=== PATIENT | female | born 1965 | race Caucasian/White ===

== ENCOUNTER → 2017-07-04 | Outpatient (CLI) | payer BC ==
[~2017-07-04] MED LIST: AMOXICILLIN500 M1 PO; ASPIRIN EC81 MG PO; BIPAP INH; BRINTELLIX5 MG PO; CARAFATE1 GM PO; CLARITIN10 MG PO; CLOTRIMAZOLE-BE45 GM TOP; COLACE100 MG PO; DITROPAN5 MG PO; DOXYCYCLINE100 MG PO; DURAGESIC 25MC25 MCG TOP; EFFEXOR XR150 MG PO; FEOSOL PO; K-TAB 10MEQ10 MEQ PO; LASIX40 MG PO; LIDODERM 5% P1 PATCH TOP; LINZESS145 MCG PO; LYRICA 150MG C150 MG PO; MIRALAX17 GM PO; MOBIC15 MG PO; MYCOSTATIN(NYST15 GM TOP; NAPROSYN500 MG PO; NUCYNTA75 MG PO; OXYGEN M-15 INH; OXYGEN M-15 NS; PAIN RELIEF PM1 EAC2 PO; PRINIVIL (ZESTR20 MG PO; PROAIR HFA8.5 GM INH; PROPRANOLOL HCL10 MG PO; PROTONIX40 MG PO; ROBAXIN500 MG PO; SINEMET 25-1001 EACH PO; TESSALON PERLE100 MG PO; TRIAMCINOLONE454 GM TOP; TYLENOL325 MG PO; VALIUM2 MG PO; VALIUM5 MG PO; XARELTO10 MG PO; ZAROXOLYN2.5 MG PO; ZOFRAN4 MG PO; [UNRECOGNIZED DRUG - OTHER] TOP
== END | disposition disaster alternative care site (69) ==
LOC: GRAD 14:57
DX: M48.06 Spinal stenosis, lumbar region (principal); M54.9 Dorsalgia, unspecified; M47.896 Other spondylosis, lumbar region; J35.2 Hypertrophy of adenoids